=== PATIENT | female | born 1950 | race Caucasian/White ===

== ENCOUNTER 2021-03-06 04:17 | Inpatient (IN) ==
[2021-03-06] MEDS ORDERED: Haloperidol 5 mg/ml SDV IV/IM 5 MG/ML AMP IV SLOW PU ONE (05:29)
[2021-03-06 05:34] LABS: ABS Lymphocytes 0.9 10^3/ul (1.0-4.8); ABS Monocytes 0.8 10^3/ul (0-0.8); ABS Neutrophils 7.3 10^3/ul (1.5-7.7); Hematocrit 37 % (35-47); Hemoglobin 12.6 g/dL (12.0-16.0); Lymphocyte % 10.4 %; Mean Corpuscular HGB Conc 34 g/dL (31-36); Mean Corpuscular Hemoglobin 33 pg (27-31); Mean Corpuscular Volume 98 fL (80-97); Mean Platelet Volume 7.6 fL (7.4-10.4); Platelet Count 361 10^3/uL (150-450); Red Blood Count 3.81 10^6 /uL (3.70-4.87); Red Cell Distribution Width 14 % (10-15)
[2021-03-06 05:40] LABS: INR 1.07 (0.82-1.09)
[2021-03-06] MEDS ORDERED: fentaNYL 100 mcg/2 ml 50 MCG/ML VIAL IV SLOW PU ONE (05:50)
[2021-03-06] MEDS ORDERED: Ondansetron 4 mg VIAL 2 MG/ML 2 ml VIAL IV PRN (05:51)
[2021-03-06 05:56] LABS: Albumin 4.3 g/dL (3.2-5.2); Albumin/Globulin Ratio 0.9 (1-3); Calcium 9.7 mg/dL (8.6-10.3); EGFR African American 131.8 (>60); Globulin 4.6 g/dL (2-4); Potassium 3.8 mmol/L (3.5-5.0); Total Bilirubin 0.5 mg/dL (0.2-1.0); Total Protein 8.9 g/dL (6.4-8.9)
[2021-03-06] MEDS ORDERED: Dextran 70/Hypromellose Tears Eye Drops 15 ml BTL (for Artificials Tears) BOTH EYES PRN (06:05)
[2021-03-06 06:45] LABS: TSH Ultra Thyroid Stim Horm 1.94 mcIU/mL (0.34-5.60)
[2021-03-06] MEDS: fentaNYL PATCH 25 MCG/HR 1 PATCH TRANSDERM SCH (09:04)
[2021-03-06] MEDS ORDERED: Lorazepam PYXIS KEY PRN (09:17)
[2021-03-06] MEDS ORDERED: LORazepam 2 mg VIAL 1 ml IM ONE (09:17)
[2021-03-06] MEDS: Polyethylene Glycol 3350 17 GM PACKET PO SCH ×2 (09:43→21:41)
[2021-03-06] MEDS: Phenytoin 100 mg ER CAP PO SCH ×2 (09:44→21:48)
[2021-03-06] MEDS: Potassium Chlor 20 meq TAB.ER PO SCH ×2 (09:45→21:45)
[2021-03-06] MEDS: Cholecalciferol (VIT D3) 1,000 unit TAB PO SCH (09:48)
[2021-03-06] MEDS: CMCS: Lactase Enzyme (NF) 3,000 UNIT TAB PO SCH ×3 (09:49→17:54)
[2021-03-06 14:33] LABS: Urine Appearance Cloudy; Urine Bilirubin Negative (Negative); Urine Blood 1+ (Negative); Urine Color Yellow; Urine Glucose Negative (Negative); Urine Ketones Negative (Negative); Urine Nitrite Negative (Negative); Urine Protein 2+(100 mg/dL) (Negative); Urine Specific Gravity 1.023 (1.002-1.030); Urine Urobilinogen Negative (Negative)
[2021-03-06 14:45] LABS: Urine Bacteria 1+ (Absent); Urine Red Blood Cell 3+(>10/hpf) (Absent); Urine White Blood Cell 3+(>20/hpf) (Absent)
[2021-03-06] MEDS: fentaNYL Patch Check Q Shift NOTE FOLLOW UP SCH (18:53)
[2021-03-06 20:33] LABS: ABS Lymphocytes 0.6 10^3/ul (1.0-4.8); ABS Monocytes 0.9 10^3/ul (0-0.8); ABS Neutrophils 6.9 10^3/ul (1.5-7.7); Eosinophil % 0.1 %; Hematocrit 30 % (35-47); Hemoglobin 10.2 g/dL (12.0-16.0); Lymphocyte % 7.3 %; Mean Corpuscular HGB Conc 34 g/dL (31-36); Mean Corpuscular Hemoglobin 34 pg (27-31); Mean Corpuscular Volume 98 fL (80-97); Platelet Count 265 10^3/uL (150-450); Red Blood Count 3.05 10^6 /uL (3.70-4.87); Red Cell Distribution Width 14 % (10-15); White Blood Count 8.4 10^3/uL (3.5-10.8)
[2021-03-06 20:45] LABS: INR 1.08 (0.82-1.09)
[2021-03-06 20:54] LABS: EGFR African American 170.6 (>60)
[2021-03-06] MEDS: Heparin 5000 UNITS/ML 1 mL VIAL SUBCUT SCH (21:55)
[2021-03-07 05:00] LABS: ABS Basophils 0.1 10^3/ul (0-0.2); ABS Monocytes 0.8 10^3/ul (0-0.8); ABS Neutrophils 4.4 10^3/ul (1.5-7.7); Eosinophil % 0.4 %; Hematocrit 29 % (35-47); Hemoglobin 9.6 g/dL (12.0-16.0); Lymphocyte % 15.6 %; Mean Corpuscular HGB Conc 34 g/dL (31-36); Mean Corpuscular Hemoglobin 33 pg (27-31); Mean Corpuscular Volume 99 fL (80-97); Mean Platelet Volume 7.2 fL (7.4-10.4); Platelet Count 240 10^3/uL (150-450); Red Blood Count 2.91 10^6 /uL (3.70-4.87); Red Cell Distribution Width 15 % (10-15); White Blood Count 6.3 10^3/uL (3.5-10.8)
[2021-03-07 05:17] LABS: Calcium 8.6 mg/dL (8.6-10.3); EGFR Non-African American 148.7 (>60); Magnesium 2.1 mg/dL (1.9-2.7); Potassium 4.1 mmol/L (3.5-5.0)
[2021-03-07] MEDS: Heparin 5000 UNITS/ML 1 mL VIAL SUBCUT SCH ×3 (06:21→20:43)
[2021-03-07] MEDS: fentaNYL Patch Check Q Shift NOTE FOLLOW UP SCH ×2 (07:48→19:44)
[2021-03-07] MEDS: Phenytoin 100 mg ER CAP PO SCH ×3 (10:11→20:28)
[2021-03-07] MEDS: Cholecalciferol (VIT D3) 1,000 unit TAB PO SCH ×2 (10:11→10:36)
[2021-03-07] MEDS: Potassium Chlor 20 meq TAB.ER PO SCH ×3 (10:12→20:34)
[2021-03-07] MEDS: CMCS: Lactase Enzyme (NF) 3,000 UNIT TAB PO SCH ×4 (10:35→16:48)
[2021-03-07] MEDS: Polyethylene Glycol 3350 17 GM PACKET PO SCH ×2 (10:36→20:44)
[2021-03-07] MEDS ORDERED: cefTRIAXone 1 gm/50 mL NS BAG 1 GM/50 ML BAG IVPB SCH (20:00)
[2021-03-08] MEDS: Heparin 5000 UNITS/ML 1 mL VIAL SUBCUT SCH ×4 (05:30→20:25)
[2021-03-08] MEDS: fentaNYL Patch Check Q Shift NOTE FOLLOW UP SCH ×2 (06:38→19:16)
[2021-03-08] MEDS: Cholecalciferol (VIT D3) 1,000 unit TAB PO SCH (07:30)
[2021-03-08] MEDS: CMCS: Lactase Enzyme (NF) 3,000 UNIT TAB PO SCH ×3 (07:30→16:52)
[2021-03-08] MEDS: Potassium Chlor 20 meq TAB.ER PO SCH ×3 (07:34→20:24)
[2021-03-08] MEDS: Phenytoin 100 mg ER CAP PO SCH ×2 (07:34→20:15)
[2021-03-08] MEDS: Polyethylene Glycol 3350 17 GM PACKET PO SCH ×2 (07:34→20:15)
[2021-03-08] MEDS ORDERED: Meropenem 1 GM PREMIX(*) 1 GM/50 ML BAG IV SCH (11:30)
[2021-03-08] MEDS ORDERED: ZOSYN 3.375 GM x ONE DOSE over 30 miuntes IV (12:00)
[2021-03-08] MEDS ORDERED: Haloperidol 5 mg/ml SDV IV/IM 5 MG/ML AMP IV SLOW PU ONE (14:25)
[2021-03-08] MEDS ORDERED: LORazepam 2 mg VIAL 1 ml IV PUSH ONE (14:26)
[2021-03-08] MEDS ORDERED: Lorazepam PYXIS KEY PRN (14:26)
[2021-03-08] MEDS: Piperacillin/Tazobac ADVAN 3.375 GM in NS 0.9% 100 ml BAG 100 ML IV SCH (19:17)
[2021-03-08 22:12] LABS: Activated Partial Thrombo Time 26.6 seconds (26.0-38.0); INR 1.08 (0.82-1.09)
[2021-03-08 22:14] LABS: ABS Basophils 0.1 10^3/ul (0-0.2); ABS Lymphocytes 0.9 10^3/ul (1.0-4.8); ABS Monocytes 0.7 10^3/ul (0-0.8); ABS Neutrophils 3.4 10^3/ul (1.5-7.7); Eosinophil % 0.4 %; Hematocrit 26 % (35-47); Hemoglobin 8.8 g/dL (12.0-16.0); Lymphocyte % 18.1 %; Mean Corpuscular HGB Conc 34 g/dL (31-36); Mean Corpuscular Hemoglobin 33 pg (27-31); Mean Corpuscular Volume 98 fL (80-97); Mean Platelet Volume 7.4 fL (7.4-10.4); Platelet Count 226 10^3/uL (150-450); Red Blood Count 2.63 10^6 /uL (3.70-4.87); Red Cell Distribution Width 14 % (10-15); White Blood Count 5.2 10^3/uL (3.5-10.8)
[2021-03-08 22:24] LABS: Calcium 8.8 mg/dL (8.6-10.3); EGFR African American 166.2 (>60); EGFR Non-African American 137.4 (>60); Magnesium 2.1 mg/dL (1.9-2.7); Potassium 3.9 mmol/L (3.5-5.0)
[2021-03-09] MEDS ORDERED: Haloperidol 5 mg/ml SDV IV/IM 5 MG/ML AMP IV SLOW PU ONE (04:12)
[2021-03-09] MEDS: Piperacillin/Tazobac ADVAN 3.375 GM in NS 0.9% 100 ml BAG 100 ML IV SCH ×3 (04:37→22:10)
[2021-03-09] MEDS ORDERED: Lorazepam PYXIS KEY PRN ×2 (05:09→18:01)
[2021-03-09] MEDS ORDERED: LORazepam 2 mg VIAL 1 ml IV PUSH ONE (05:11)
[2021-03-09] MEDS ORDERED: Buffered Lidocaine 1% SYRIN 1 ml INTRADERM ONE (06:00)
[2021-03-09] MEDS ORDERED: Lactated Ringers 1000 ml BAG 1,000 ML IV SCH (06:00)
[2021-03-09 07:05] LABS: CO2 Carbon Dioxide 19 mmol/L (22-32); Calcium 8.4 mg/dL (8.6-10.3); Chloride 105 mmol/L (101-111); Sodium 137 mmol/L (135-145)
[2021-03-09 07:11] LABS: Blood Urea Nitrogen 11 mg/dL (6-24); EGFR African American 166.2 (>60); EGFR Non-African American 137.4 (>60); Glucose 84 mg/dL (70-100)
[2021-03-09 07:20] LABS: Anion Gap 13 mmol/L (2-11)
[2021-03-09] MEDS: fentaNYL Patch Check Q Shift NOTE FOLLOW UP SCH ×2 (07:27→19:04)
[2021-03-09] MEDS: Cholecalciferol (VIT D3) 1,000 unit TAB PO SCH (09:37)
[2021-03-09] MEDS: Polyethylene Glycol 3350 17 GM PACKET PO SCH ×2 (09:37→21:58)
[2021-03-09] MEDS: Potassium Chlor 20 meq TAB.ER PO SCH ×2 (09:37→21:58)
[2021-03-09] MEDS: CMCS: Lactase Enzyme (NF) 3,000 UNIT TAB PO SCH ×3 (09:37→16:44)
[2021-03-09] MEDS: Phenytoin 100 mg ER CAP PO SCH (09:37)
[2021-03-09] MEDS: fentaNYL PATCH 25 MCG/HR 1 PATCH TRANSDERM SCH (09:50)
[2021-03-09] MEDS ORDERED: Lidocaine 1% w EPI 1:100,000 MDV 20 ML VIAL ONE (11:39)
[2021-03-09] MEDS ORDERED: Bupivacaine 0.25% SDV 30 ML ONE (11:40)
[2021-03-09] MEDS ORDERED: Propofol 10 MG/ML 20 ML BTL ONE (11:53)
[2021-03-09] MEDS ORDERED: fentaNYL 100 mcg/2 ml 50 MCG/ML VIAL ONE ×2 (11:54→14:37)
[2021-03-09] MEDS ORDERED: Rocuronium 50 mg VIAL 10 mg/ml 5 ml VIAL (50 mg) ONE (11:54)
[2021-03-09] MEDS ORDERED: Phenylephrine 40 mcg/mL 10mL (400mcg) SYRINGE ONE ×2 (11:54→14:52)
[2021-03-09] MEDS ORDERED: fentaNYL 250 mcg/5 ml 50 MCG/ML 5 ml VIAL (250 MCG) ONE (13:02)
[2021-03-09] MEDS ORDERED: Bupivacaine 0.5% 50 ML MDV VIAL ONE (14:33)
[2021-03-09] MEDS ORDERED: HYDROmorphone 1 MG/1 ML SYRINGE ONE (14:37)
[2021-03-09] MEDS ORDERED: Ondansetron 4 mg VIAL 2 MG/ML 2 ml VIAL ONE (14:38)
[2021-03-09] MEDS ORDERED: Ondansetron 4 mg VIAL 2 MG/ML 2 ml VIAL IV PRN (15:03)
[2021-03-09] MEDS ORDERED: Naloxone 0.4 mg VIAL 0.4 mg/ml 1 ml VIAL IV PRN (15:03)
[2021-03-09] MEDS ORDERED: fentaNYL 100 mcg/2 ml 50 MCG/ML VIAL IV PRN (15:03)
[2021-03-09] MEDS ORDERED: LORazepam 2 mg VIAL 1 ml IV PUSH PRN (18:01)
[2021-03-09] MEDS ORDERED: Phenytoin IV 50 MG/ML 2 ML VIAL (100 MG) IVPB SCH ×2 (21:00)
[2021-03-09] MEDS: NS 0.9% IVPB SCH (21:50)
[2021-03-09] MEDS: FOSPHENYTOIN IVPB SCH (21:50)
[2021-03-09] MEDS: Heparin 5000 UNITS/ML 1 mL VIAL SUBCUT SCH (21:59)
[2021-03-10] MEDS: Piperacillin/Tazobac ADVAN 3.375 GM in NS 0.9% 100 ml BAG 100 ML IV SCH ×3 (03:48→21:37)
[2021-03-10 03:58] LABS: Hematocrit 25 % (35-47); Hemoglobin 8.4 g/dL (12.0-16.0)
[2021-03-10 04:00] LABS: ABS Lymphocytes 0.9 10^3/ul (1.0-4.8); ABS Monocytes 0.7 10^3/ul (0-0.8); ABS Neutrophils 4.6 10^3/ul (1.5-7.7); Eosinophil % 0.1 %; Hematocrit 25 % (35-47); Hemoglobin 8.4 g/dL (12.0-16.0); Lymphocyte % 13.6 %; Mean Corpuscular HGB Conc 34 g/dL (31-36); Mean Corpuscular Hemoglobin 32 pg (27-31); Mean Corpuscular Volume 97 fL (80-97); Mean Platelet Volume 7.4 fL (7.4-10.4); Nucleated Red Blood Cells % 0.1; Platelet Count 280 10^3/uL (150-450); Red Blood Count 2.59 10^6 /uL (3.70-4.87); Red Cell Distribution Width 17 % (10-15); White Blood Count 6.3 10^3/uL (3.5-10.8)
[2021-03-10 04:16] LABS: Calcium 8.5 mg/dL (8.6-10.3); EGFR Non-African American 102.5 (>60); Potassium 3.8 mmol/L (3.5-5.0)
[2021-03-10] MEDS: Heparin 5000 UNITS/ML 1 mL VIAL SUBCUT SCH ×3 (06:07→21:40)
[2021-03-10] MEDS: Levothyroxine 100 MCG/5 ML VIAL IV SCH (06:09)
[2021-03-10] MEDS: fentaNYL Patch Check Q Shift NOTE FOLLOW UP SCH ×2 (07:33→19:09)
[2021-03-10] MEDS: FOSPHENYTOIN IVPB SCH (08:14)
[2021-03-10] MEDS: NS 0.9% IVPB SCH (08:14)
[2021-03-10] MEDS: Polyethylene Glycol 3350 17 GM PACKET PO SCH ×2 (08:17→21:40)
[2021-03-10] MEDS: CMCS: Lactase Enzyme (NF) 3,000 UNIT TAB PO SCH ×3 (08:19→17:01)
[2021-03-10] MEDS: Cholecalciferol (VIT D3) 1,000 unit TAB PO SCH (08:19)
[2021-03-10] MEDS: Potassium Chlor 20 meq TAB.ER PO SCH ×2 (08:19→21:40)
[2021-03-11] MEDS: FOSPHENYTOIN IVPB SCH ×2 (01:43→12:50)
[2021-03-11] MEDS: NS 0.9% IVPB SCH ×2 (01:43→12:50)
[2021-03-11] MEDS: Levothyroxine 100 MCG/5 ML VIAL IV SCH (05:10)
[2021-03-11] MEDS: Piperacillin/Tazobac ADVAN 3.375 GM in NS 0.9% 100 ml BAG 100 ML IV SCH ×3 (05:10→21:12)
[2021-03-11] MEDS: Heparin 5000 UNITS/ML 1 mL VIAL SUBCUT SCH ×3 (05:10→21:23)
[2021-03-11] MEDS: fentaNYL Patch Check Q Shift NOTE FOLLOW UP SCH ×2 (07:58→17:47)
[2021-03-11] MEDS: Polyethylene Glycol 3350 17 GM PACKET PO SCH ×2 (07:58→21:15)
[2021-03-11] MEDS: Cholecalciferol (VIT D3) 1,000 unit TAB PO SCH (08:01)
[2021-03-11] MEDS: Potassium Chlor 20 meq TAB.ER PO SCH ×2 (08:01→21:15)
[2021-03-11] MEDS: CMCS: Lactase Enzyme (NF) 3,000 UNIT TAB PO SCH ×3 (08:02→17:39)
[2021-03-12] MEDS: FOSPHENYTOIN IVPB SCH ×3 (01:30→21:53)
[2021-03-12] MEDS: NS 0.9% IVPB SCH ×3 (01:30→21:53)
[2021-03-12] MEDS: Piperacillin/Tazobac ADVAN 3.375 GM in NS 0.9% 100 ml BAG 100 ML IV SCH ×3 (04:26→17:39)
[2021-03-12] MEDS: Levothyroxine 100 MCG/5 ML VIAL IV SCH (06:23)
[2021-03-12] MEDS: Heparin 5000 UNITS/ML 1 mL VIAL SUBCUT SCH (06:23)
[2021-03-12] MEDS: fentaNYL Patch Check Q Shift NOTE FOLLOW UP SCH ×2 (06:56→19:05)
[2021-03-12 07:06] LABS: Calcium 8.2 mg/dL (8.6-10.3); EGFR Non-African American 177.7 (>60); Potassium 3.4 mmol/L (3.5-5.0)
[2021-03-12 07:22] LABS: ABS Eosinophils 0.1 10^3/ul (0-0.6); ABS Lymphocytes 0.8 10^3/ul (1.0-4.8); ABS Monocytes 0.6 10^3/ul (0-0.8); ABS Neutrophils 2.9 10^3/ul (1.5-7.7); Eosinophil % 2.2 %; Hematocrit 21 % (35-47); Hemoglobin 7.1 g/dL (12.0-16.0); Lymphocyte % 17.5 %; Mean Corpuscular HGB Conc 35 g/dL (31-36); Mean Corpuscular Hemoglobin 33 pg (27-31); Mean Corpuscular Volume 95 fL (80-97); Mean Platelet Volume 7.4 fL (7.4-10.4); Platelet Count 302 10^3/uL (150-450); Red Blood Count 2.16 10^6 /uL (3.70-4.87); Red Cell Distribution Width 16 % (10-15); White Blood Count 4.4 10^3/uL (3.5-10.8)
[2021-03-12] MEDS: fentaNYL PATCH 25 MCG/HR 1 PATCH TRANSDERM SCH (08:29)
[2021-03-12] MEDS: CMCS: Lactase Enzyme (NF) 3,000 UNIT TAB PO SCH ×3 (08:33→18:26)
[2021-03-12] MEDS: Cholecalciferol (VIT D3) 1,000 unit TAB PO SCH (08:34)
[2021-03-12] MEDS: Potassium Chlor 20 meq TAB.ER PO SCH ×2 (08:34→21:55)
[2021-03-12] MEDS: Polyethylene Glycol 3350 17 GM PACKET PO SCH ×2 (08:38→21:55)
[2021-03-12 10:48] LABS: Hematocrit 18 % (35-47); Hemoglobin 6.3 g/dL (12.0-16.0)
[2021-03-12 12:12] LABS: Albumin 3.2 g/dL (3.2-5.2); Albumin/Globulin Ratio 0.9 (1-3); Globulin 3.6 g/dL (2-4); Indirect Bilirubin 0.5 mg/dL (0.3-1.0); Total Bilirubin 0.6 mg/dL (0.2-1.0); Total Protein 6.8 g/dL (6.4-8.9)
[2021-03-12] MEDS ORDERED: NS 0.9% IVPB SCH (16:30)
[2021-03-12] MEDS ORDERED: FOSPHENYTOIN IVPB SCH (16:30)
[2021-03-12 20:57] LABS: Hematocrit 26 % (35-47); Hemoglobin 9.2 g/dL (12.0-16.0)
[2021-03-13] MEDS: Piperacillin/Tazobac ADVAN 3.375 GM in NS 0.9% 100 ml BAG 100 ML IV SCH ×3 (01:48→16:28)
[2021-03-13] MEDS: Levothyroxine 100 MCG/5 ML VIAL IV SCH (06:08)
[2021-03-13] MEDS: fentaNYL Patch Check Q Shift NOTE FOLLOW UP SCH ×2 (07:13→19:18)
[2021-03-13] MEDS: FOSPHENYTOIN IVPB SCH ×2 (09:49→21:26)
[2021-03-13] MEDS: NS 0.9% IVPB SCH ×2 (09:49→21:26)
[2021-03-13] MEDS: Cholecalciferol (VIT D3) 1,000 unit TAB PO SCH (09:53)
[2021-03-13] MEDS: CMCS: Lactase Enzyme (NF) 3,000 UNIT TAB PO SCH ×3 (09:53→16:28)
[2021-03-13] MEDS: Potassium Chlor 20 meq TAB.ER PO SCH ×2 (09:54→21:24)
[2021-03-13] MEDS: Polyethylene Glycol 3350 17 GM PACKET PO SCH ×2 (10:59→21:31)
[2021-03-14] MEDS: Piperacillin/Tazobac ADVAN 3.375 GM in NS 0.9% 100 ml BAG 100 ML IV SCH ×5 (01:00→23:38)
[2021-03-14] MEDS: Levothyroxine 100 MCG/5 ML VIAL IV SCH (05:01)
[2021-03-14] MEDS: fentaNYL Patch Check Q Shift NOTE FOLLOW UP SCH ×2 (07:29→18:58)
[2021-03-14] MEDS ORDERED: Haloperidol 5 mg/ml SDV IV/IM 5 MG/ML AMP IV SLOW PU ONE (11:32)
[2021-03-14] MEDS: CMCS: Lactase Enzyme (NF) 3,000 UNIT TAB PO SCH ×2 (13:55→16:39)
[2021-03-14] MEDS: Cholecalciferol (VIT D3) 1,000 unit TAB PO SCH (13:55)
[2021-03-14] MEDS: Polyethylene Glycol 3350 17 GM PACKET PO SCH ×2 (13:57→21:18)
[2021-03-14] MEDS: Potassium Chlor 20 meq TAB.ER PO SCH ×2 (13:57→21:18)
[2021-03-14] MEDS ORDERED: LORazepam 2 mg VIAL 1 ml IV PUSH ONE (14:07)
[2021-03-14] MEDS ORDERED: Lorazepam PYXIS KEY PRN (14:07)
[2021-03-14 16:22] LABS: ABS Eosinophils 0.1 10^3/ul (0-0.6); ABS Lymphocytes 0.9 10^3/ul (1.0-4.8); ABS Monocytes 0.5 10^3/ul (0-0.8); ABS Neutrophils 3.3 10^3/ul (1.5-7.7); Eosinophil % 2.1 %; Hematocrit 30 % (35-47); Hemoglobin 10.3 g/dL (12.0-16.0); Lymphocyte % 18.2 %; Mean Corpuscular HGB Conc 35 g/dL (31-36); Mean Corpuscular Hemoglobin 32 pg (27-31); Mean Corpuscular Volume 92 fL (80-97); Mean Platelet Volume 6.6 fL (7.4-10.4); Platelet Count 447 10^3/uL (150-450); Red Blood Count 3.22 10^6 /uL (3.70-4.87); Red Cell Distribution Width 17 % (10-15); White Blood Count 4.9 10^3/uL (3.5-10.8)
[2021-03-14] MEDS: FOSPHENYTOIN IVPB SCH ×2 (16:40→21:13)
[2021-03-14] MEDS: NS 0.9% IVPB SCH ×2 (16:40→21:13)
[2021-03-14] MEDS ORDERED: Calcium Gluconate 2 GM in NS 0.9% 100 ml BAG 100 ML IV ONE (18:37)
[2021-03-15] MEDS: Levothyroxine 100 MCG/5 ML VIAL IV SCH (04:06)
[2021-03-15] MEDS: fentaNYL Patch Check Q Shift NOTE FOLLOW UP SCH ×2 (08:41→21:21)
[2021-03-15] MEDS: fentaNYL PATCH 25 MCG/HR 1 PATCH TRANSDERM SCH (08:42)
[2021-03-15] MEDS: CMCS: Lactase Enzyme (NF) 3,000 UNIT TAB PO SCH ×3 (08:47→16:39)
[2021-03-15] MEDS: Potassium Chlor 20 meq TAB.ER PO SCH ×2 (08:47→21:22)
[2021-03-15] MEDS: FOSPHENYTOIN IVPB SCH ×2 (08:47→21:23)
[2021-03-15] MEDS: Cholecalciferol (VIT D3) 1,000 unit TAB PO SCH (08:47)
[2021-03-15] MEDS: NS 0.9% IVPB SCH ×2 (08:47→21:23)
[2021-03-15] MEDS: Piperacillin/Tazobac ADVAN 3.375 GM in NS 0.9% 100 ml BAG 100 ML IV SCH ×2 (08:48→16:39)
[2021-03-15] MEDS: Polyethylene Glycol 3350 17 GM PACKET PO SCH ×2 (08:48→21:23)
[2021-03-15] MEDS ORDERED: Potassium Chloride LIQUID 20 MEQ/15 ML LIQUID PO ONE (14:20)
[2021-03-15] MEDS: Enoxaparin 40 MG/0.4 ML SYR SUBCUT SCH (16:38)
[2021-03-16] MEDS: Piperacillin/Tazobac ADVAN 3.375 GM in NS 0.9% 100 ml BAG 100 ML IV SCH ×2 (02:44→10:40)
[2021-03-16] MEDS: Levothyroxine 100 MCG/5 ML VIAL IV SCH (04:55)
[2021-03-16 05:24] LABS: ABS Eosinophils 0.1 10^3/ul (0-0.6); ABS Lymphocytes 0.8 10^3/ul (1.0-4.8); ABS Monocytes 0.5 10^3/ul (0-0.8); ABS Neutrophils 1.2 10^3/ul (1.5-7.7); Eosinophil % 4.7 %; Hematocrit 30 % (35-47); Hemoglobin 10.3 g/dL (12.0-16.0); Lymphocyte % 30.3 %; Mean Corpuscular HGB Conc 34 g/dL (31-36); Mean Corpuscular Hemoglobin 32 pg (27-31); Mean Corpuscular Volume 93 fL (80-97); Mean Platelet Volume 6.7 fL (7.4-10.4); Nucleated Red Blood Cells % 0.1; Platelet Count 477 10^3/uL (150-450); Red Blood Count 3.22 10^6 /uL (3.70-4.87); Red Cell Distribution Width 17 % (10-15); White Blood Count 2.8 10^3/uL (3.5-10.8)
[2021-03-16] MEDS: fentaNYL Patch Check Q Shift NOTE FOLLOW UP SCH ×2 (08:48→19:07)
[2021-03-16 08:56] LABS: Calcium 8.5 mg/dL (8.6-10.3); EGFR African American 154.3 (>60); EGFR Non-African American 127.5 (>60); Potassium 4.1 mmol/L (3.5-5.0)
[2021-03-16] MEDS: CMCS: Lactase Enzyme (NF) 3,000 UNIT TAB PO SCH ×3 (08:56→16:46)
[2021-03-16] MEDS: Cholecalciferol (VIT D3) 1,000 unit TAB PO SCH (08:57)
[2021-03-16] MEDS: Potassium Chlor 20 meq TAB.ER PO SCH ×2 (08:59→19:52)
[2021-03-16] MEDS: Polyethylene Glycol 3350 17 GM PACKET PO SCH ×2 (08:59→19:54)
[2021-03-16] MEDS: NS 0.9% IVPB SCH ×2 (09:38→20:06)
[2021-03-16] MEDS: FOSPHENYTOIN IVPB SCH ×2 (09:38→20:06)
[2021-03-16] MEDS: Enoxaparin 40 MG/0.4 ML SYR SUBCUT SCH (16:45)
[2021-03-17] MEDS: Levothyroxine 100 MCG/5 ML VIAL IV SCH (05:45)
[2021-03-17] MEDS: fentaNYL Patch Check Q Shift NOTE FOLLOW UP SCH (07:29)
[2021-03-17] MEDS: CMCS: Lactase Enzyme (NF) 3,000 UNIT TAB PO SCH ×2 (08:46→12:18)
[2021-03-17] MEDS: Cholecalciferol (VIT D3) 1,000 unit TAB PO SCH (08:46)
[2021-03-17] MEDS: FOSPHENYTOIN IVPB SCH (08:48)
[2021-03-17] MEDS: Potassium Chlor 20 meq TAB.ER PO SCH (08:48)
[2021-03-17] MEDS: NS 0.9% IVPB SCH (08:48)
[2021-03-17] MEDS: Polyethylene Glycol 3350 17 GM PACKET PO SCH (08:48)
[2021-03-17 10:25] LABS: ABS Basophils 0.1 10^3/ul (0-0.2); ABS Eosinophils 0.1 10^3/ul (0-0.6); ABS Lymphocytes 0.7 10^3/ul (1.0-4.8); ABS Monocytes 0.4 10^3/ul (0-0.8); ABS Neutrophils 3.5 10^3/ul (1.5-7.7); Eosinophil % 1.9 %; Hematocrit 32 % (35-47); Hemoglobin 10.3 g/dL (12.0-16.0); Mean Corpuscular HGB Conc 33 g/dL (31-36); Mean Corpuscular Hemoglobin 32 pg (27-31); Mean Corpuscular Volume 96 fL (80-97); Mean Platelet Volume 6.5 fL (7.4-10.4); Nucleated Red Blood Cells % 0.1; Platelet Count 508 10^3/uL (150-450); Red Blood Count 3.28 10^6 /uL (3.70-4.87); Red Cell Distribution Width 17 % (10-15); White Blood Count 4.7 10^3/uL (3.5-10.8)
[2021-03-17 11:34] VITALS: BP 138/61
== END 2021-03-17 14:00 | DRG 480 ==
LOC: ED 04:17 → SSU 05:51 → MED 03-07 06:16
PROVIDERS: ADMIT Internal Medicine Interventional Cardiology; ATTEND Internal Medicine